=== PATIENT | female | born 1980 | race Caucasian/White ===

== ENCOUNTER → 2023-08-19 | Outpatient (CLI) | payer BC ==
--- NOTE | 2023-08-21 20:45 | MM ---
Reason for Exam: Screening (asymptomatic). Risk Values: Crystal 5 year model risk: 0.5%. NCI Lifetime model risk: 6.4%. Tissue Density: There are scattered areas of fibroglandular density. Findings: Analyzed By CAD. There is underlying circumscribed nodularity in the right breast for which further ultrasound evaluation is recommended. No suspicious microcalcification or other discrete abnormality is seen. Overall Assessment: Incomplete: need additional imaging evaluation, BI-RAD 0 Management: Diagnostic Breast Ultrasound of the right breast. [facility] will attempt to contact patient to return for supplemental views and ultrasound if indicated. Electronically signed and approved by: Obdulio Segura M.D. Radiologist
== END | disposition home or self-care (01) ==
LOC: RADMAMWWP 07:21
PROVIDERS: ATTEND Family Medicine
DX: Z12.31 Encounter for screening mammogram for malignant neoplasm of breast (principal)
CPT/HCPCS: 77063; 77067

== ENCOUNTER → 2023-08-26 | Outpatient (CLI) | payer BC ==
--- NOTE | 2023-08-26 08:30 | USB ---
Reason for Exam: Additional evaluation requested from abnormal screening. Risk Values: Crystal 5 year model risk: 0.5%. NCI Lifetime model risk: 6.4%. Technique: Method: Targeted. Prior Study Comparison: 08/19/2023 Bilateral MG 3D screening mammo w/cad, [facility]. Findings: The upper outer quadrant of the right breast, the lower outer quadrant of the right breast, the axilla of the right breast and the retroareolar of the right breast were scanned. At the 10:00 position 8 cm from nipple there is a hypoechoic area measuring 0.7 x 0.4 x 0.5 cm. This area is suspicious and ultrasound-guided core biopsy is recommended. This may correlate with the mammographic findings. Postprocedure correlation is recommended. There is an additional hypoechoic area measuring 1.0 x 0.4 x 1.0 cm the 12:00 position 6 cm nipple. This area appears to be a cystic cluster. In the absence of other suspicious findings, short-term follow-up of this area could be performed.. Overall Assessment: Suspicious, BI-RAD 4 Management: Ultrasound Core Biopsy of the right breast. A clinical breast exam by your physician is recommended on an annual basis and results should be correlated with mammographic findings. This exam should not preclude additional follow-up of suspicious palpable abnormalities. Results were given to the patient verbally at the time of exam. Electronically signed and approved by: Cristo Wade D.O. Radiologis
== END | disposition home or self-care (01) ==
LOC: RADUSWWP 07:22
PROVIDERS: ATTEND Family Medicine
DX: R92.8 Other abnormal and inconclusive findings on diagnostic imaging of breast (principal)

== ENCOUNTER → 2023-09-07 | Day surgery (SDC) | payer BC ==
--- NOTE | 2023-09-12 08:01 | MM ---
Reason for Exam: Post Procedure Mammogram. Last screening mammogram was performed less than 1 month ago. Risk Values: Crystal 5 year model risk: 0.5%. NCI Lifetime model risk: 6.4%. Prior Study Comparison: 08/19/2023 Bilateral MG 3D screening mammo w/cad, [facility]. Tissue Density: Right: There are scattered areas of fibroglandular density. Pathology Description: Location: 10 o'clock. Marker Left Behind. Needle Type: Mammotome Cores: 4 Gauge: 13 The procedure of ultrasound guided core biopsy was explained to the patient. Benefits, alternatives, and risks were discussed. An informed consent was then obtained. The oval lesion of mixed echogenicity located at the 10:00 position right breast and measuring 8 mm is identified and targeted for biopsy. The patient was placed in supine positioning for imaging and for the procedure. The overlying skin was prepped and draped in usual sterile fashion. Lidocaine was used as anesthetic into the skin and subcutaneous tissue up to area of concern in the 10:00 right breast. Under ultrasound guidance, a 13-gauge vacuum-assisted mammotome Elite biopsy gun was used to obtain 4 core samples. Following this, a coil clip was left in lesion. The patient tolerated the procedure well without any immediate complication. The patient was kept in the radiology department for short stay after the procedure and then discharged home in stable condition. Postprocedure mammogram: The patient was transferred to mammography for physician ordered post procedure mammogram for clip placement verification. Post procedure mammogram shows coil clip corresponding to the more posterior upper-outer quadrant nodule initially detected on mammogram. The more centrally located nodule probably corresponds to the cyst cluster seen on ultrasound at 12:00. If benign results, six-month follow-up right breast mammogram can be performed. IMPRESSION: Successful, uncomplicated ultrasound guided core biopsy of area corresponding to the mammographic nodularity posterior upper-outer quadrant. If benign results, six-month follow-up right breast mammogram for the more central nodularity likely corresponding to a 12:00 cyst cluster by ultrasound. Full pathology results to follow. Pathology Results: Result: Benign, Pseudoangiomatous stromal hyperplasia. Pathology and radiology were reviewed. Findings are concordant. 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 Fibrocystic change with columnar cell change and focal mild acute and chronic inflammation. See note. Notes According to a 08-19-23 mammogram report, there is a circumscribed nodularity within the right breast. The bland and fibrotic stromal proliferation has features which are compatible with benign pseudoangiomatous stromal hyperplasia (PASH), having slit-like spaces lined by benign-appearing spindled cells in some areas. Benign PASH can present clinically as a nodular mass lesion. Examination is negative for malignancy. Overall Assessment: Benign Assessment: MG diagnostic mammo RT wo CAD - Right: Benign, BI-RAD 2. Management: Diagnostic Mammogram of the right breast in 6 months. 6 month follow up for the other 12 o'clock nodule, likely cyst cluster on ultrasound. Electronically signed and approved by: Obdulio Segura M.D. Radiologist
== END ==
LOC: RADUSWWP 07:36
PROVIDERS: ATTEND Family Medicine
DX: N61.0 Mastitis without abscess (principal); R92.8 Other abnormal and inconclusive findings on diagnostic imaging of breast
CPT/HCPCS: 88305; 77065; 19083; A4648